=== PATIENT | female | born 1985 | race Caucasian/White ===

== ENCOUNTER 2022-03-27 20:05 | Emergency (ER) | payer BC, MEDICAID | END 2022-03-27 20:45 | disposition left against medical advice (07) | LOC: EMS 20:09 | DX: R51.9 Headache, unspecified (principal); Z53.21 Procedure and treatment not carried out due to patient leaving prior to being seen by health care provider ==

== ENCOUNTER 2022-05-15 02:47 | Emergency (ER) | payer BC, MEDICAID ==
[~2022-05-15] VITALS: Ht 165.1 cm; Wt 75.0 kg
[2022-05-15 03:17] VITALS: BP 133/76
== END 2022-05-15 03:58 | disposition left against medical advice (07) ==
LOC: EMS 02:49
DX: Z53.21 Procedure and treatment not carried out due to patient leaving prior to being seen by health care provider (principal)
CPT/HCPCS: 99281; Z7502